=== PATIENT | female | born 1945 | race Caucasian/White ===

== ENCOUNTER 2017-04-22 17:22 | Emergency (ER) | payer MEDICARE ==
[~2017-04-22] VITALS: Ht 175.3 cm; Wt 84.0 kg
[~2017-04-22 17:22] MED LIST: ALENDRONATE35 MG PO; ALLOPURINOL300 MG PO; ALTOPREV40 MG PO; ARAVA20 MG PO; COUMADIN4 MG PO; D3 ULTRA ST5000 UNIT PO; FOLIC ACID1 MG PO; FUROSEMIDE20 MG PO; HYDROXYCHLOR200 M1 PO; LISINOP/HCTZ1 TAB PO; MACROBID100 MG PO; MAGNESIUM-OX400 MG PO; OXYCODONE HCL5 MG PO; POTASSIUM CHLO20 ME1 PO; PRILOSEC40 MG PO; RHEUMATREX2.5 M1 PO; SIMPONI50 MG/0.5 INF; SYMBICORT1 AE1 IN; VERAPAMIL240 M1 PO; ZOFRAN4 MG/TAB PO
[2017-04-22 18:58] LABS: HEMOGLOBIN 10.7 g/dl (12.0-16.0); IMMATURE GRANULOCYTES 0.3 % (0.0-1.0); MEAN CELL VOLUME 91.7 fL CALC (80.0-100.0); MEAN CORPUSCULAR HGB 29.7 pG CALC (26.0-32.0); MEAN CORPUSCULAR HGB CONC 32.4 g/L CALC (32.0-36.0); NEUT# 4.37 thou/uL (2.00-7.15); RED BLOOD COUNT 3.6 mill/uL (4.20-5.60); RED CELL DISTRI WIDTH 13.8 % (11.5-15.5)
[2017-04-22 19:11] LABS: ALBUMIN 3.6 g/dL (3.2-5.0); BILIRUBIN, TOTAL 0.8 mg/dL (0.0-1.4); CALCIUM 9.6 mg/dL (8.4-10.2); CREATININE 1.4 mg/dL (0.5-1.0); POTASSIUM 4.1 mmol/l (3.5-5.1); TOTAL PROTEIN 5.8 g/dL (6.3-8.2)
[2017-04-22] MEDS ORDERED: KEFLEX500 M1 PO (20:58)
[2017-04-22 21:25] VITALS: BP 160/80
== END 2017-04-22 21:25 | disposition home or self-care (01) ==
LOC: ED 17:22
PROVIDERS: Emergency Medicine
DX: R60.9 Edema, unspecified (principal); L98.9 Disorder of the skin and subcutaneous tissue, unspecified; D64.9 Anemia, unspecified; N28.9 Disorder of kidney and ureter, unspecified; I10 Essential (primary) hypertension

== ENCOUNTER → 2018-08-20 | Outpatient (REF) | payer MEDICARE ==
[~2018-08-20] MED LIST changes: +KEFLEX500 M1 PO
[2018-08-20 15:27] VITALS: BP 150/80
== END | disposition home or self-care (01) ==
LOC: STRESS 12:05 → NUCMED 12:45
PROVIDERS: ATTEND Internal Medicine
DX: R06.02 Shortness of breath (principal); I50.1 Left ventricular failure, unspecified; I20.9 Angina pectoris, unspecified
CPT/HCPCS: A9502; J1160; J2785